=== PATIENT | female | born 1960 | race Caucasian/White ===

== ENCOUNTER → 2016-07-11 | Outpatient (CLI) | payer BC ==
[~2016-07-11] MED LIST: HYDR-3714 PO; IBUP-1428 PO; TRAM-10 PO; ZOLP5TAB PO
--- NOTE | 2016-07-11 15:32 | MAMMOGRAPHY REPORT ---
BILATERAL DIGITAL SCREENING MAMMOGRAM TOMOSYNTHESIS WITH CAD: 07/11/2016 CLINICAL HISTORY: Routine screening. Patient has no complaints. TECHNIQUE: Breast tomosynthesis in addition to standard 2D mammography was performed. Current study was also evaluated with a Computer Aided Detection (CAD) system. COMPARISON: Comparison is made to exams dated: 07/10/2015 mammogram, 07/05/2013 mammogram, 07/06/2014 [place] m[place], 06/27/2011 mammogram, 07/02/2012 mammogram, and 06/26/2010 mammogram - [facility] [place] nt. BREAST COMPOSITION: There are scattered areas of fibroglandular density in both breasts. FINDINGS: No suspicious masses, calcifications, or areas of architectural distortion are noted in e ither breast. There has been no significant interval change compared to prior exams. IMPRESSION: ACR BI-RADS CATEGORY 1: NEGATIVE There is no mammographic evidence of malignancy. A 1 year screening mammogram is recommended. The p atient will receive written notification of the results. Approximately 10% of breast cancers are not detected with mammography. A negative mammographic repor t should not delay biopsy if a clinically suggestive mass is present. Vane Kincaid M.D. ah/:07/11/2016 13:52:34 Senior Sql Server Developer: Christina LAKE(Papi)(M), [facility] letter sent: Normal 1/2 BI-RADS Code: ACR BI-RADS Category 1: Negative
== END | disposition home or self-care (01) ==
LOC: C.MAMM 13:09
PROVIDERS: ATTEND Obstetrics & Gynecology
DX: Z12.31 Encounter for screening mammogram for malignant neoplasm of breast (principal)

== ENCOUNTER 2024-09-27 07:08 | Observation (INO) ==
--- NOTE | 2024-08-16 13:19 | PAT Medication Instructions ---
Medication Instructions Date of Service August 16, 2024 Home Medications Medication Instructions Recorded valacyclovir 500 mg tablet 500 mg PO BID PRN prn #10 tabs 05/23/23 bupropion HCl 300 mg 24 hr tablet, extended release (Wellbutrin XL) 300 mg PO QAM valacyclovir 500 mg tablet 500 mg PO BID PRN prn acetaminophen 500 mg capsule 1,000 mg PO Q8H PRN Pain clobetasol 0.05 % topical ointment 1 applic topical .APPLY SPARINGLY TO A PRN Other doxycycline hyclate 100 mg tablet 100 mg PO DAILY PRN Rash fenofibrate 160 mg tablet 160 mg PO QAM ibuprofen 200 mg tablet (Advil) 400 - 600 mg PO Q6H PRN Pain tirzepatide (weight loss) 2.5 mg/0.5 mL subcutaneous pen injector (Zepbound) 2.5 mg subcut WK ASK your surgeon for instructions ibuprofen 200 mg tablet (Advil) 400 - 600 mg PO Q6H PRN Pain STOP 7 days prior to surgery tirzepatide (weight loss) 2.5 mg/0.5 mL subcutaneous pen injector (Zepbound) 2.5 mg subcut WK STOP taking 48 hours before surgery fenofibrate 160 mg tablet 160 mg PO QAM STOP taking 24 hours before surgery clobetasol 0.05 % topical ointment 1 applic topical .APPLY SPARINGLY TO A PRN Other Take morning of surgery With a small sip of water, OTHERWISE NOTHING TO EAT OR DRINK AFTER MIDNIGHT: bupropion HCl 300 mg 24 hr tablet, extended release (Wellbutrin XL) 300 mg PO QAM valacyclovir 500 mg tablet 500 mg PO BID PRN prn (if needed) acetaminophen 500 mg capsule 1,000 mg PO Q8H PRN Pain (if needed) doxycycline hyclate 100 mg tablet 100 mg PO DAILY PRN Rash (if needed) Take evening before surgery valacyclovir 500 mg tablet 500 mg PO BID PRN prn (if needed) acetaminophen 500 mg capsule 1,000 mg PO Q8H PRN Pain (if needed) doxycycline hyclate 100 mg tablet 100 mg PO DAILY PRN Rash (if needed) Other Notes If you have any questions please call us at [phone] or [phone] or [phone] or [phone]
--- NOTE | 2024-08-26 08:56 | Anesthesiology Consultation ---
Date of Service August 26, 2024 Assessment & Plan (1) Encounter for pre-operative examination: - will request 08/[address] Mckeon. - tirzepatide instructions: Patient informed at PAT visit to stop 7 days prior to surgery-voiced understanding. Chart Review Chart Review: Pending: Refer to Additional Notes / Consult section and Patient seen in Pre Admission Testing Teaching & Discussion Pre-Anesthesia Teaching/Discussion Notes: Instructed NPO after midnight before surgery, except medications with 15 cc of water. Medication instructions provided according to the [facility] guidelines. History Surgery Operation Date: 09/27/24 09:15 Proposed Procedures p Right Total Hip Arthroplasty Anterior - Crow Pham DO Height/Weight Height: 5 ft 4 in Weight: 83.2 kg Allergies Allergy/AdvReac Type Severity Reaction Status Date / Time No Known Drug Allergies Allergy Verified 08/16/24 12:19 Medications Home Medications Medication Instructions Recorded Confirmed Last Taken bupropion HCl 300 mg 24 hr tablet, 300 mg PO QAM 04/13/20 08/16/24 04/23/21 0 7:30 extended release (Wellbutrin XL) valacyclovir 500 mg tablet 500 mg PO BID PRN prn #10 tabs 05/23/23 08/16/24 Unknown acetaminophen 500 mg capsule 1,000 mg PO Q8H PRN Pain 08/16/24 08/16/24 Unknown clobetasol 0.05 % topical ointment 1 applic topical .APPLY SPARINGLY 08/16/24 08/16/24 Unknown TO A PRN Other doxycycline hyclate 100 mg tablet 100 mg PO DAILY PRN Rash 08/16/24 08/16/24 Unknown fenofibrate 160 mg tablet 160 mg PO QAM 08/16/24 08/16/24 Unknown ibuprofen 200 mg tablet (Advil) 400 - 600 mg PO Q6H PRN Pain 08/16/24 08/16/24 Unknown tirzepatide (weight loss) 2.5 2.5 mg subcut WK 08/16/24 08/16/24 Unknown mg/0.5 mL subcutaneous pen injector (Zepbound) Past Medical History Medical History (Updated 08/26/24 @ 09:04 by Bettie Zapata PA-C) Arthritis DJD (degenerative joint disease) H/O herpes simplex type 2 infection History of COVID-19 (~2019) denies hospitalization-symptoms resolved Obesity Patient denies h/o stroke, seizures, heart attack, heart failure, DM, HTN, blood clots/DVTs or blood transfusions. Exercise / Class Metabolic Activity II 4-5 Yardwork/Stairs/Walk up hill (denies chest discomfort or shortness of breath with one flight of stairs) Past Family History Family History Father Diabetes Cancer Mother Myocardial infarction Denies family history of Ovarian cancer Prostate cancer Breast cancer Colorectal cancer Past Surgical History Surgical History (Updated 08/26/24 @ 08:51 by Bettie Zapata PA-C) H/O tooth extraction History of appendectomy History of conization of cervix History of left hip replacement History of tonsillectomy Hx of colonoscopy Past Anesthesia History No Hx of Anesthesia Complications and No Family Hx of Anesthesia Complications History of PONV No Hx of PONV and No Hx of Motion Sickness Social History Smoking Status: Never smoker Do You Dip or Chew Tobacco: No Hx Alcohol Use: Yes Alcohol type: wine alcohol intake frequency: a few times a week Hx Substance Use: No substance use type: does not use Review of Systems Occasional snoring, denies witnessed apneas. Patient denies chest pain, shortness of breath, dyspnea on exertion, reflux, fever, chills, cough, wheezing, or palpitations. Physical Exam Vital Signs Vitals BP 111/73 P 79 TEMP 98.0 SP02 94% on RA RESP 17 Physical Patient resting comfortably in chair in no acute distress, alert and oriented, responding appropriately throughout visit Full cervical extension range of motion without pain TMD 3.5 finger breadths Mallampati Score 2 Dentition: one crown, denies chipped or loose teeth, caps, implants or bridges Lungs: normal respiratory effort. Good air movement, clear throughout to auscultation, no adventitious breath sounds Cardiac: regular rate and rhythm, no murmurs noted Carotid arteries: negative bruit bilat Lab Results Anesthesia Preop Results Results Anesthesia Widget: WBC 5.46 K/ul (4.8-10.8) 08/26/24 Hgb 13.8 g/dl (12.0-16.0) 08/26/24 Hct 41.9 % (37.0-47.0) 08/26/24 Plt 238 K/uL (130-400) 08/26/24 Na 140 mmol/L (136-145) 08/26/24 K 4.1 mmol/L (3.5-5.1) 08/26/24 Cl 108 mmol/L (98-107) H 08/26/24 CO2 26 mmol/L (21-32) 08/26/24 BUN 14 mg/dl (6-23) 08/26/24 Creat 0.60 mg/dl (0.6-1.2) 08/26/24 Glucose Level 100 mg/dl (70-99(Fasting)) H 08/26/24 PT 10.1 Seconds (9.0-12.0) 08/26/24 PTT 26 Seconds (21-31) 08/26/24 INR 0.9 (0.9-1.1) 08/26/24 Blood Type A Positive 08/26/24 Antibody Screen NEGATIVE 08/26/24 Testing Electrocardiogram Date: 08/26/24 NSR, rate 75 bpm Nonspecific T wave abnormality Chest X-Ray Date: 08/26/24 No acute findings. Stress Test Date: 09/03/18 1. Negative exercise stress ECG for ischemia at 102 % MPHR. METS 7.9 2. No arrhythmia. 3. Appropriate blood pressure response to exercise. 4. No chest pain reported. 5. Fair Exercise tolerance.
--- NOTE | 2024-09-22 15:11 | History & Physical Report ---
Date of Service September 22, 2024 Assessment & Plan (1) Osteoarthritis of right hip: We will proceed with a right anterior total of arthroplasty. Postoperatively, she will be started on aspirin for DVT prophylaxis and kept overnight in the hospital for postop medical management. She plans to use energy physical therapy upon discharge. History of Present Illness Chief Complaint: Osteoarthritis of the right hip. Primary Care Provider: Crow Brownmassiel Harris is a pleasant 63-year-old female who has been dealing with chronic increasing right hip pain. She does have a history of a left hip replacement done by Dr. Erazo in the past. She has done well with that. She says it was a long recovery. She is now having similar symptoms in her right hip. X-rays and clinical exam have been diagnostic for advanced arthritis of the right hip. After failed conservative treatment, she has elected to proceed with a right anterior total hip arthroplasty. Allergies Allergy/AdvReac Type Severity Reaction Status Date / Time No Known Drug Allergies Allergy Verified 09/21/24 15:36 Home Medications Medication Instructions Recorded Confirmed Type bupropion HCl 300 mg 24 hr tablet, 300 mg PO QAM 04/13/20 09/21/24 History extended release (Wellbutrin XL) valacyclovir 500 mg tablet 500 mg PO BID PRN prn #10 tabs 05/23/23 09/21/24 Rx acetaminophen 500 mg capsule 1,000 mg PO Q8H PRN Pain 08/16/24 09/21/24 History doxycycline hyclate 100 mg tablet 100 mg PO DAILY PRN Rash 08/16/24 09/21/24 History fenofibrate 160 mg tablet 160 mg PO QAM 08/16/24 09/21/24 History ibuprofen 200 mg tablet (Advil) 400 - 600 mg PO Q6H PRN Pain 08/16/24 09/21/24 History tirzepatide (weight loss) 2.5 2.5 mg subcut WK 08/16/24 09/21/24 History mg/0.5 mL subcutaneous pen injector (Zepbound) clobetasol 0.05 % topical ointment 1 applic topical .APPLY SPARINGLY 09/21/24 09/21/24 Rx TO A PRN Other #30 grams Past Med/Surg History Problem List Right knee DJD Knee swelling Encounter for pre-operative examination Patellofemoral dysfunction DJD (degenerative joint disease) of knee Knee pain Lichen sclerosus et atrophicus Medical History Obesity H/O herpes simplex type 2 infection Arthritis DJD (degenerative joint disease) History of COVID-19 (~2020) denies hospitalization-symptoms resolved Surgical History History of conization of cervix History of left hip replacement History of tonsillectomy History of appendectomy Hx of colonoscopy H/O tooth extraction Family History Father Diabetes Cancer Mother Myocardial infarction Denies family history of Ovarian cancer Prostate cancer Breast cancer Colorectal cancer Social History Smoking Status: Never smoker Second Hand Exposure: No; Do You Dip or Chew Tobacco: No; Hx Alcohol Use: Yes Alcohol type: wine Hx Substance Use: No Preferred Language: Armenian Communication Ability: Effective Master [employer] Security Required: No Beliefs That Will Affect Care: None Current Living Situation: Spouse Feels Safe at Home: Yes Assistive Devices: Glasses Review of Systems All systems reviewed & are unremarkable except as noted in HPI & below. Physical Exam On physical exam of the right hip, she has decreased range of motion. She has pain with internal/external rotation. All of her pain is located in the groin.. Constitutional WD/WN, vitals as above Eyes PERRL, conjunctivae normal, anicteric sclerae ENMT external ear and nose normal, oropharynx normal Neck trachea midline, no thyromegaly Respiratory normal respiratory effort Cardiovascular RRR, no murmur, no edema Gastrointestinal (Abdomen) normal bowel sounds, soft, nontender, no hepatosplenomegaly Psychiatric A+Ox3, euthymic affect Results & Data Results & Data Laboratory Results . Diagnostic Findings X-rays of the right hip show advanced osteoarthritis with joint space narrowing, osteophyte formation, and [id number] articulation. PG Care Time/CCT Total # of Minutes Spent Total Time Spent with Patient: Total time spent is greater than 50% in coordination of care (as documented) at patient's floor/unit and/or counseling patient: Coding Level of Care Code None Diagnoses Osteoarthritis of right hip M16.11
[~2024-09-27 07:08] MED LIST changes: -HYDR-3714 PO; -IBUP-1428 PO; +ROPIVACAINE 0.5% 5 MG/ML 30 ML VIAL ONE; -TRAM-10 PO; -ZOLP5TAB PO
[2024-09-27] MEDS: FAMOTIDINE 20 MG TAB PO SCH (07:33)
[2024-09-27] MEDS: ACETAMINOPHEN 500 MG TAB PO SCH ×2 (07:33→13:28)
[2024-09-27] MEDS: GABAPENTIN 300 MG CAP PO SCH (07:33)
[2024-09-27] MEDS: LR 60ML/HR IV SCH (07:33)
[2024-09-27] MEDS ORDERED: PROPOFOL IV EMULSION 10 MG/ML 20 ML VIAL IV ONE ×2 (07:34→09:23)
[2024-09-27] MEDS ORDERED: MIDAZOLAM HCL 1 MG/ML 2ML VIAL ONE (07:34)
[2024-09-27] MEDS ORDERED: ONDANSETRON INJ 2 MG/ML 2 ML VIAL ONE (07:34)
[2024-09-27] MEDS: LR 500ML BOLUS, THEN 15ML/HR IV SCH (07:44)
[2024-09-27] MEDS: dexAMETHasone**PF** 10 MG/ML VIAL IV SCH (07:48)
--- NOTE | 2024-09-27 08:06 | History & Physical Bridge Note ---
Date of Service September 27, 2024 History & Physical Bridge Note I have examined the patient, reviewed the History & Physical and in the interval since the performance of the History & Physical I have noted the following changes of clinical significance: no changes noted
[2024-09-27] MEDS ORDERED: ONDANSETRON INJ 2 MG/ML 2 ML VIAL IV PRN ×2 (08:47→11:58)
[2024-09-27] MEDS ORDERED: KETOROLAC 30 MG/ML VIAL IV PRN (08:47)
[2024-09-27] MEDS ORDERED: ePHEDrine sulfate 50 MG/ML AMP IV PRN (08:47)
[2024-09-27] MEDS ORDERED: HYDROmorphone INJ 1 MG/ML SYRINGE IV PRN (08:47)
[2024-09-27] MEDS ORDERED: ATROPINE SULFATE 0.1 MG/ML 10ML SYR IV PRN (08:47)
[2024-09-27] MEDS: TRANEXAMIC ACID 1,000 MG **IV Pre-op IV SCH (09:01)
[2024-09-27] MEDS: ceFAZolin 2000MG 2,000 MG/15 ML SYR IV SCH (09:32)
[2024-09-27] MEDS ORDERED: KETAMINE HCL 10MG/ML SYR ONE (09:37)
[2024-09-27] MEDS: ORTHO JOINT ANESTHETIC ONE (09:55)
[2024-09-27] MEDS: ROPIV 0.5% 246mg, Ketorolac 30mg, EPINEPHrine 0.5mg in NSS INFIL SCH (09:55)
--- NOTE | 2024-09-27 10:14 | Operative Report ---
PG Post Operative Report Pre & Post Diagnosis Operation Date: 09/27/24 09:00 Pre-Op Diagnosis: Right Hip Osteoarthritis Post-Op Diagnosis: Right Hip Osteoarthritis I identified the patient and participated in the time-out.: Yes Procedure Operation Date: 09/27/24 09:00 Actual Procedures p Right Total Hip Arthroplasty Anterior, Uncemented(Right) - Crow Pham DO Surgeon Crow Pham DO Telecom Sales Consultant Michael Thomas PA-C Estimated Blood Loss 200 Findings Consistent with Post-Op Diagnosis Specimens Right femoral head Description of Procedure Implants used I used a Zimmer[employer]omet total hip arthroplasty system with a size 2 standard offset Z1 stem, a 50 mm G7 cup with a 25mm screw, an E1 polyethylene liner, a 36 mm ceramic head with a 0 neck. Kimberly arrived at the hospital for the above procedure. She was seen in the preoperative holding area and the operative extremity was identified and signed. She was given a spinal anesthetic, a preoperative antibiotic, and TXA. She was then taken back to the operating room and laid on the table in the supine position. She was given basic sedation. The operative leg was secured to a Puristst leg positioner. The hip was then prepped and draped in sterile fashion. A timeout was done and the patient and the operative extremity was properly identified. An anterior approach was used. Dissection was taken down through the fascia and the tensor muscle belly was retracted laterally and the rectus was retracted medially. The circumflex vessels were identified and ligated. The capsule was then incised and tagged for later repair. The femoral neck was then cut and the femoral head was removed. The acetabulum was exposed. Time was spent doing a complete circumferential labral release. Sequential reaming of the acetabulum up to a size 49 reamer was done. Final reamings were done under fluoroscopy to ensure appropriate version. A Biomet 50 mm G7 cup was then impacted into place. A single 25 mm screw was placed. The E1 polyethylene liner was then snapped into place. Surrounding soft tissues were then injected with 100 cc of an orthopedic pain control cocktail. The proximal femur was then exposed. Sequential broaching up to a size 2 broach was done. Off that broach a size 36 head with a 0 neck was trialed. The hip was reduced and fluoroscopic images showed anatomic alignment of the implants in acceptable length. The broach was removed. The final size 2 standard offset Z1 stem was then impacted into place. A ceramic 36 mm head with a 0 neck was then impacted onto the stem and the hip was reduced. Final fluoroscopic images showed anatomic alignment of the hip. The capsule was then closed with #1 Vicryl suture. A dilute betadyne lavage was then done for 3 minutes. The joint was then irrigated with normal saline solution. The fascia was closed with #1 PDS suture. Skin was closed with 2-0 Vicryl, teressa, and a Silverlon dressing. She was then transferred to a hospital bed and taken to the post anesthesia care unit in stable condition. She tolerated the procedure well. Michael Thomas PA-C, was present for the entire procedure. He was critical for patient positioning, prepping, draping, retraction exposure, wound closure and application of sterile dressing. I attest to the content of the Intraoperative Record and any orders documented therein. Any exceptions are noted below.
[2024-09-27] MEDS: TRANEXAMIC ACID 1,000 MG **IV Intra-op IV SCH (10:16)
[2024-09-27] MEDS ORDERED: PHENYLEPHRINE 100MCG/ML 5ML SYR ONE (10:21)
--- NOTE | 2024-09-27 10:43 | Fluoroscopy Report ---
FL hip RT 1V CLINICAL HISTORY: RT ANT HIP COMPARISON STUDY: Right hip radiographs July 13, 2024. Fluoroscopy time: 11 seconds. Number of fluoroscopic images: 1 Ka,r: 1.4450 mGy. FINDINGS: Fluoroscopy was provided during anterior total right hip arthroplasty. Alignment is anatomi c. There is an acetabular screw. No fractures are identified by fluoroscopy. IMPRESSION: Fluoroscopy provided during anterior total right hip arthroplasty. ACT 112: Negative or not required by law. Electronically signed by: Nate Ahmadi M.D. 09/27/2024 10:42 AM
--- NOTE | 2024-09-27 11:39 | Anesthesiology Progress Note ---
Date of Service September 27, 2024 Anesthesia Post Procedure Vital Signs Vital Signs: Temp Pulse Pulse Resp BP Pulse Ox O2 Del Method 09/27/24 11:25 65 20 112/62 94 Room Air 09/27/24 11:15 63 20 107/74 94 Room Air 09/27/24 11:05 36.4 C L 63 16 115/53 L 96 Room Air 09/27/24 10:55 66 18 104/64 94 Room Air 09/27/24 10:45 76 18 108/72 92 Room Air 09/27/24 10:35 36.9 C 86 12 115/73 95 Oxymask 09/27/24 07:24 36.7 C 76 20 135/89 97 Room Air O2 Flow Rate 09/27/24 11:25 09/27/24 11:15 09/27/24 11:05 09/27/24 10:55 09/27/24 10:45 09/27/24 10:35 6 09/27/24 07:24 Pain Intensity Right Hip: Pain Intensity: 0 Transfer of Care Handoff Completed per policy Notes Mental Status: alert / awake / arousable Patient Amnestic to Procedure: Yes Nausea / Vomiting: adequately controlled Pain: adequately controlled Airway Patency, RR, SpO2: stable & adequate BP & HR: stable & adequate Hydration State: stable & adequate Neuraxial Anesthesia: was administered and sensory block is resolving Anesthetic Complications: no major complications apparent
--- NOTE | 2024-09-27 11:42 | XRay Report ---
XR hip 1V RT w pelvis CLINICAL HISTORY: Postoperative evaluation. COMPARISON: Right hip radiographs July 13, 2024. FINDINGS: Alignment of the total right hip arthroplasty is anatomic. There is no periprosthetic frac ture or unexpected radiopaque foreign body. There is an acetabular screw. Left hip arthroplasty is in tact. IMPRESSION: Expected findings following right hip arthroplasty. ACT 112: Negative or not required by law. Electronically signed by: Nate Ahmadi M.D. 09/27/2024 11:41 AM
[2024-09-27] MEDS ORDERED: bisacodyL 10 MG SUPP PR PRN (11:58)
[2024-09-27] MEDS ORDERED: NALOXONE HCL 0.4 MG/1 ML VIAL/CARP IV PRN (11:58)
[2024-09-27] MEDS ORDERED: MAGNESIUM HYDROXIDE SUSP 30 ML UDC PO PRN (11:58)
[2024-09-27] MEDS ORDERED: HYDROmorphone INJ 0.5 MG/0.5 ML SYR IV PRN (11:58)
[2024-09-27] MEDS ORDERED: METOCLOPRAMIDE HCL INJ 5 MG/ML 2 ML VIAL IV PRN (11:58)
[2024-09-27] MEDS: KETOROLAC TROMETHAMINE 15 MG/ML VIAL IV SCH (13:28)
[2024-09-27] MEDS: ceFAZolin 1000MG 1,000 MG/7.5 ML SYR IV SCH (18:50)
[2024-09-27] MEDS: SENNA 8.6 MG TAB PO SCH (21:39)
[2024-09-27] MEDS: DOCUSATE SODIUM 100 MG CAP PO SCH (21:39)
[2024-09-27] MEDS: ASPIRIN 81 MG ECTAB PO SCH (21:39)
[2024-09-28 00:16] VITALS: RESP 16
[2024-09-28 05:15] VITALS: PULSE 67
[2024-09-28] MEDS: oxyCODONE HCL IR 5 MG TAB (IMMEDIATE RELEASE) PO PRN (07:33)
[2024-09-28] MEDS: MULTIVITAMIN TAB PO SCH (07:34)
[2024-09-28] MEDS: buPROPion XL 300 MG TABCR PO SCH (07:34)
[2024-09-28] MEDS: dexAMETHasone 4 MG TAB PO SCH (07:34)
[2024-09-28 07:56] VITALS: BP 121/77; TEMP 97.5; O2SAT 96
--- NOTE | 2024-09-28 15:25 | Orthopedic Progress Note ---
Date of Service September 28, 2024 Assessment & Plan (1) Status post right hip replacement: Assessment: Status post right total hip arthroplasty anterior. Plan: Overall, she is doing quite well today with good pain control of the right hip. She will work with physical therapy later this morning to work on ambula tion and range of motion exercises. She was started on aspirin for DVT prophylaxis. She can be discharged home later this morning pending formal physical therapy evaluation recommendation. She is aware that her Silverlon dressing should remain in place for 7 days. After 7 days, she can remove the dressing herself and leave it open to air or allow physical therapy to do this. She will follow-up with orthopedics in 2 to 3 weeks for continued postoperative management or sooner if needed. Subjective . Saraih was seen and evaluated this morning resting comfortably in no apparent distress. She notes that her pain is well-controlled to the right hip. She has been up and out of bed without any significant issues. She has yet to work physical therapy this morning. She denies any concerns with her surgical incision site. She denies any active bleeding, discharge, or signs infection. She denies any other concerns today. Review of Systems All systems reviewed & are unremarkable except as noted in HPI & below. Physical Exam . On physical examination of the right hip, the dressing is clean, dry, intact no signs of active bleeding, discharge, or signs infection. Her leg is on full extension. Limited range of motion strength secondary to postoperative stiffness soreness. Calf soft nontender to palpation. Negative Homans' sign. Intact plantarflexion and dorsiflexion to the right ankle. +2 DP and PT pulse. Less than 2-second capillary refill. Normal sensation. Neurovascular intact. Results & Data Results & Data Laboratory Results . Diagnostic Findings . Hip X-Ray 09/27/24 09:00 FL hip RT 1V CLINICAL HISTORY: RT ANT HIP COMPARISON STUDY: Right hip radiographs July 13, 2024. Fluoroscopy time: 11 seconds. Number of fluoroscopic images: 1 Ka,r: 1.4450 mGy. FINDINGS: Fluoroscopy was provided during anterior total right hip arthroplasty. Alignment is anatomic. There is an acetabular screw. No fractures are identified by fluoroscopy. IMPRESSION: Fluoroscopy provided during anterior total right hip arthroplasty. ACT 112: Negative or not required by law. Electronically signed by: Nate Ahmadi M.D. 09/27/2024 10:42 AM Hip/Pelvis X-Ray 09/27/24 10:40 XR hip 1V RT w pelvis CLINICAL HISTORY: Postoperative evaluation. COMPARISON: Right hip radiographs July 13, 2024. FINDINGS: Alignment of the total right hip arthroplasty is anatomic. There is no periprosthetic fracture or unexpected radiopaque foreign body. There is an acetabular screw. Left hip arthroplasty is intact. IMPRESSION: Expected findings following right hip arthroplasty. ACT 112: Negative or not required by law. Electronically signed by: Nate Ahmadi M.D. 09/27/2024 11:41 AM PG Care Time/CCT Total # of Minutes Spent Total Time Spent with Patient: Total time spent is greater than 50% in coordination of care (as documented) at patient's floor/unit and/or counseling patient: Coding Level of Care Code 94610 Post Operative Follow-Up Diagnoses Status post right hip replacement Z96.641
--- NOTE | 2024-09-28 15:27 | Discharge Summary ---
Date of Service September 28, 2024 Admission HPI (Per Admitting) Kimberly is a pleasant 63-year-old female who has been dealing with chronic increasing right hip pain. She does have a history of a left hip replacement done by Dr. Erazo in the past. She has done well with that. She says it was a long recovery. She is now having similar symptoms in her right hip. X-rays and clinical exam have been diagnostic for advanced arthritis of the right hip. After failed conservative treatment, she has elected to proceed with a right anterior total hip arthroplasty. Admission Exam (Per Admitting) On physical exam of the right hip, she has decreased range of motion. She has pain with internal/external rotation. All of her pain is located in the groin.. Principal Diagnosis Same as "Discharge Diagnosis" noted below under Discharge Instructions. Discharge Exam . On physical examination of the right hip, the dressing is clean, dry, intact no signs of active bleeding, discharge, or signs infection. Her leg is on full extension. Limited range of motion strength secondary to postoperative stiffness soreness. Calf soft nontender to palpation. Negative Homans' sign. Intact plantarflexion and dorsiflexion to the right ankle. +2 DP and PT pulse. Less than 2-second capillary refill. Normal sensation. Neurovascular intact. Discharge Data Procedures Performed Operation Date: 09/27/24 09:00 Actual Procedures p Right Total Hip Arthroplasty Anterior, Uncemented(Right) - Crow Pham DO Ordered Studies 09/27/24 09:00 FL hip RT 1V Routine Hospital Course (1) Status post right hip replacement: On September 27, 2024 Kimberly arrived at 9 in the hospital underwent a right total hip arthroplasty anterior performed by Dr. Pham with no complications. She had a spinal anesthetic. Postoperatively, she was started on aspirin for DVT prophylaxis and transferred to the general orthopedic floor in stable condition. Her hospital course was uneventful. On postoperative day #1, her vital signs were stable and her pain was well-controlled. She participated well physical therapy working on ambulation and range of motion exercises. She was then discharged home in stable condition. She will follow-up with orthopedics in 2 to 3 weeks for continued postoperative management or sooner if needed. PG Care Time/CCT Total # of Minutes Spent Total Time Spent with Patient: Total time spent is greater than 50% in coordination of care (as documented) at patient's floor/unit and/or counseling patient: Discharge Plan Discharge Items Patient Disposition: Home - Home Health Services Reason For Visit: Right Hip Arthritis Discharge Diagnosis: Same Activity: Per Instructions section Non-emergency contact: Surgeon Call non-emergency contact if: your temperature is above 101.5, your wound has increased redness, your wound has increased drainage and your wound pain has increased Follow-up/Referrals: Crow Mckeon [Primary Care Provider] - Diet: Regular Addtl Attending Provider Instructions: Activity and Therapy Recommendations: * If you are using [facility] then therapy will be provided at your home until they feel you have accomplished all of your goals. * If you are using [facility] then Physical Therapy will be provided until they feel you are ready to start Outpatient Physical Therapy. * If you are not using home therapy then Outpatient Physical Therapy should start about 3-5 days from your day of surgery. Therapy will last about 6-10 weeks * You were shown a series of exercises in the hospital. Do these exercises three times each day including the exercises you were shown in physical therapy. * Get up and walk several times each day.~ For the first four weeks, try not to stand or walk for more than one hour at a time. If you do stand or walk for more than one hour, you will not hurt anything, but your leg will likely swell.~~ * As you feel comfortable, you may change from the walker or crutches to a cane and~then to independent walking. Medications: * Narcotic You will likely be sent home from the hospital with a prescription for the narcotic pain medication that worked best throughout your stay. * Cefadroxil -take the antibiotic twice a day for 10 days to help prevent infection. * Aspirin Most patients will be required to take Aspirin 81mg twice a day for 6 weeks after surgery. This is obtained [id number] and a prescription is not necessary. * Other medications may be prescribed for specific circumstances. If you have any questions, please call the office at . * Resume previous home medications unless otherwise instructed TEDs/Elastic Stockings: The white elastic stockings help limit swelling and prevent blood clots from forming in your legs. The more you wear them, the more they work. Wear them for 2 weeks. Dressing Care: Leave the Silverlon dressing in place for 7 days. After 7 days you may remove the dressing. If the incision is not draining then you may leave the teressa open to air. If there is a little bit of drainage or if the teressa are getting stuck on your clothing then cover the incision with a dry dressing. The teressa will be removed at your 2 week follow-up appointment. Showering: You may shower with the Silverlon dressing in place. Do not let the shower spray hit the dressing directly. Pat the Silverlon dressing dry. If the dressing becomes wet underneath, then simply remove the dressing. Keep the incision dry until you are 7 days out from the day of surgery. After 7 days you may remove the Silverlon dressing and shower with the teressa exposed. Let soapy water run over the teressa and pat them dry. Do not scrub or soak the incision. Diet: You may resume your previous diet. Things To Watch For: * Drainage from the incision site that occurs more than one week after your surgery. * Increased redness at the incision site. * Fever above 102 degrees Fahrenheit. * Unusual chest pain or shortness of breath. * Call [facility] at with any of the above problems Follow-Up Visit: Follow-up with Dr. Pham's office 2-3 weeks after your day of surgery. We will remove your teressa and answer any questions. If you have any additional questions or concerns, Dr Pham is usually in the office at the same time and will be available An appointment was probably scheduled when you signed-up for surgery in the office. If you have any questions call Office Instructions: More detailed instructions as well as Frequently Asked Questions were provided in a folder by our office when you signed-up for surgery. Please review these instructions when you get home. If you have any further questions or concerns, please feel free to call the office at [phone] Pending Studies at Discharge: No Stand-Alone Forms: [facility], Smoking Cessation Medications and DC Order Prescriptions: New aspirin 81 mg Tablet,Delayed Release (Dr/Ec) 81 mg PO BID 42 Days Qty: 0 0RF cefadroxil 500 mg capsule 500 mg PO BID 10 Days Qty: 20 0RF oxycodone 5 mg tablet 5 mg PO Q6H PRN (Reason: pain) Qty: 30 0RF Continued valacyclovir 500 mg tablet 500 mg PO BID PRN (Reason: prn) Qty: 10 1RF bupropion HCl [Wellbutrin XL] 300 mg tablet extended release 24 hr 300 mg PO QAM clobetasol 0.05 % ointment 1 applic topical .APPLY SPARINGLY TO A PRN (Reason: Other) Qty: 30 3RF doxycycline hyclate 100 mg Tablet 100 mg PO DAILY PRN (Reason: Rash) fenofibrate 160 mg Tablet 160 mg PO QAM acetaminophen 500 mg capsule 1,000 mg PO Q8H PRN (Reason: Pain) Rx Instructions: Take 3 times per day to lessen pain. Zepbound 2.5 mg/0.5 mL Pen Injector 2.5 mg SUBCUT WK Patient Comments: takes on sundays > last dose 08/08/24 Held ibuprofen [Advil] 200 mg Tablet 400 - 600 mg PO Q6H PRN (Reason: Pain) Hold Instructions: Resume on 11/09/24. Admission Data Admit Date/Time: 09/27/24 11:40 Attending Provider: Crow Pham Admit Provider: Crow Pham Primary Care Provider: Crow Mckeon Other Interventions: Discharge Summary Assessment (RN) Last Done: 09/28/24 09:26
== END 2024-09-28 11:03 | disposition home health service (06) ==
LOC: ASU 07:08 → 3E 07:08